=== PATIENT | female | born 1960 | race Caucasian/White ===

== ENCOUNTER 2017-01-11 13:45 | Outpatient (RCR) | payer OTHER | END 2017-01-14 | disposition home or self-care (01) | LOC: WSPT | DX: M25.551 Pain in right hip (principal) | CPT/HCPCS: G0283-GP ==

== ENCOUNTER 2017-01-22 15:00 | Outpatient (RCR) | payer OTHER ==
[2017-02-20] MEDS ORDERED: WELLBUTRIN XL300 M1 PO (11:46)
[2017-02-20] MEDS ORDERED: DESYREL DIVIDO300 MG PO (11:46)
[2017-02-20] MEDS ORDERED: LUNESTA3 MG PO (11:47)
[2017-02-20] MEDS ORDERED: B-121000 MCG PO (11:48)
[2017-02-20] MEDS ORDERED: ATIVAN2 MG PO (11:48)
[2017-02-20] MEDS ORDERED: PERCOCET 325 MG1 TA2 PO (11:49)
[2017-02-20] MEDS ORDERED: D3-5050000 IU PO (11:50)
[2017-02-20] MEDS ORDERED: CYMBALTA 60MG60 MG PO (11:50)
== END 2017-03-15 20:22 | disposition still patient (30) ==
LOC: WSPT 15:00
DX: M72.2 Plantar fascial fibromatosis (principal); M25.551 Pain in right hip; R21 Rash and other nonspecific skin eruption; J18.9 Pneumonia, unspecified organism

== ENCOUNTER → 2017-02-22 | Outpatient (CLI) | payer OTHER ==
[~2017-02-22] VITALS: Ht 154.9 cm; Wt 85.2 kg
[~2017-02-22] MED LIST: ATIVAN2 MG PO; B-121000 MCG PO; CYMBALTA 60MG60 MG PO; D3-5050000 IU PO; DESYREL DIVIDO300 MG PO; LUNESTA3 MG PO; PERCOCET 325 MG1 TA2 PO; WELLBUTRIN XL300 M1 PO
[2017-02-22 12:20] VITALS: BP 143/94; PULSE 90
[2017-02-22 13:10] VITALS: BP 156/101; PULSE 88
[2017-02-22 13:35] VITALS: BP 163/92; PULSE 89
== END ==
LOC: COL.RAD 02-20 09:00
DX: E04.2 Nontoxic multinodular goiter (principal); N25.81 Secondary hyperparathyroidism of renal origin; Z98.890 Other specified postprocedural states

== ENCOUNTER 2017-06-04 05:34 | Day surgery (SDC) | payer OTHER ==
[2017-06-04] VITALS (11 sets, daily range): BP systolic 121–191; BP diastolic 66–94; PULSE 73–86; TEMP 97.6–98.1
[~2017-06-04] VITALS: Ht 154.9 cm; Wt 90.2 kg
[2017-06-04] MEDS ORDERED: NATURAL ZINC50 MG PO (06:02)
[2017-06-04] MEDS ORDERED: MULTI VITAMINS1 TAB PO (06:03)
[2017-06-05 03:48] VITALS: BP 188/95; PULSE 72; TEMP 98.6
[2017-06-05 06:03] VITALS: BP 154/80; PULSE 85; TEMP 98.6
[2017-06-05] MEDS ORDERED: PERCOCET 325 MG1 TA2 PO (08:46)
[2017-06-05 10:48] VITALS: BP 143/74; PULSE 85; TEMP 98.1
== END 2017-06-05 11:20 ==
LOC: SDCO 05:34 → SURG 10:26 → SDCO 06-05 11:20
DX: E04.2 Nontoxic multinodular goiter (principal); M16.9 Osteoarthritis of hip, unspecified; F20.9 Schizophrenia, unspecified; F32.9 Major depressive disorder, single episode, unspecified; N18.3 Chronic kidney disease, stage 3 (moderate)
CPT/HCPCS: OP; J1170; J2175; J2270; J2405; J2704; J3010; J7120

== ENCOUNTER 2017-09-07 20:46 | Emergency (ER) | payer OTHER ==
[~2017-09-07] VITALS: Ht 154.9 cm; Wt 90.9 kg
[~2017-09-07 20:46] MED LIST changes: +MULTI VITAMINS1 TAB PO; +NATURAL ZINC50 MG PO
[2017-09-07 20:48] VITALS: BP 133/80; TEMP 100.8
[2017-09-07] MEDS ORDERED: VITAMIN D 1001000 IU PO (20:59)
[2017-09-07] MEDS ORDERED: ESTRACE0.1 MG/GM VG (20:59)
[2017-09-07] MEDS ORDERED: CYMBALTA 60MG60 MG PO (20:59)
[2017-09-07] MEDS ORDERED: LUNESTA3 MG PO (21:00)
[2017-09-07] MEDS ORDERED: ATIVAN2 MG PO (21:00)
[2017-09-07] MEDS ORDERED: PERCOCET 325 MG1 TA2 PO (21:01)
[2017-09-07] MEDS ORDERED: FLAGYL500 MG PO (21:01)
[2017-09-07] MEDS ORDERED: ANTIVERT 12.512.5 MG PO (21:01)
[2017-09-07] MEDS ORDERED: BACTRIM DS 8001 TAB PO (21:02)
[2017-09-07] MEDS ORDERED: AZULFIDINE ENT500 MG PO (21:02)
[2017-09-07] MEDS ORDERED: DESYREL DIVIDO300 MG PO (21:03)
[2017-09-07] MEDS ORDERED: VITAMIN D 50,1.25 MG PO (21:03)
[2017-09-07] MEDS ORDERED: B-121000 MCG PO (21:03)
[2017-09-07] MEDS ORDERED: PHARMASSURE ZIN50 MG PO (21:04)
[2017-09-07] MEDS ORDERED: NORVASC 5MG5 MG/TAB PO (21:05)
[2017-09-07 21:30] LABS: INFLUENZA A NEGATIVE; INFLUENZA B POSITIVE
[2017-09-07] MEDS ORDERED: TAMIFLU 75MG75 MG PO (21:35)
[2017-09-07 21:53] VITALS: PULSE 94
== END 2017-09-07 21:53 | disposition home or self-care (01) ==
LOC: COL.ER 20:46
PROVIDERS: Nurse Practitioner Primary Care
DX: J10.1 Influenza due to other identified influenza virus with other respiratory manifestations (principal); I12.9 Hypertensive chronic kidney disease with stage 1 through stage 4 chronic kidney disease, or unspecified chronic kidney disease; N18.9 Chronic kidney disease, unspecified; K50.90 Crohn's disease, unspecified, without complications; Z87.442 Personal history of urinary calculi; Z90.89 Acquired absence of other organs

== ENCOUNTER 2018-06-19 11:05 | Day surgery (SDC) | payer OTHER ==
[~2018-06-19] VITALS: Ht 154.9 cm; Wt 92.9 kg
[~2018-06-19 11:05] MED LIST changes: +ANTIVERT 12.512.5 MG PO; +AZULFIDINE ENT500 MG PO; +BACTRIM DS 8001 TAB PO; +ESTRACE0.1 MG/GM VG; +FLAGYL500 MG PO; +NORVASC 5MG5 MG/TAB PO; +PHARMASSURE ZIN50 MG PO; +TAMIFLU 75MG75 MG PO; +VITAMIN D 1001000 IU PO; +VITAMIN D 50,1.25 MG PO
[2018-06-19 11:50] VITALS: BP 134/90; PULSE 77; TEMP 97.9
[2018-06-19 11:57] LABS: CALCIUM 10.5 mg/dL (8.4-10.2); CREATININE, serum 1.13 mg/dL (0.52-1.25); POTASSIUM 4.6 mmol/L (3.4-5.0)
[2018-06-19] MEDS ORDERED: BYSTOLIC5 MG PO (12:00)
[2018-06-19] MEDS ORDERED: MULTI VITAMINS1 TAB PO (12:00)
[2018-06-19 15:35] VITALS: BP 132/74; PULSE 75; TEMP 98
[2018-06-19 15:50] VITALS: BP 141/76; PULSE 75
[2018-06-19] MEDS ORDERED: NORCO 325 MG-51 TAB PO (15:52)
[2018-06-19] MEDS ORDERED: PYRIDIUM 100MG100 MG (15:52)
[2018-06-19] MEDS ORDERED: SENOKOT S 50 MG1 TAB PO (15:53)
[2018-06-19 16:05] VITALS: BP 133/72; PULSE 67
== END 2018-06-19 17:20 | disposition home or self-care (01) ==
LOC: SDCO 11:05
PROVIDERS: Nurse Anesthetist, Certified Registered
DX: N20.1 Calculus of ureter (principal); E21.3 Hyperparathyroidism, unspecified; F32.9 Major depressive disorder, single episode, unspecified; I12.9 Hypertensive chronic kidney disease with stage 1 through stage 4 chronic kidney disease, or unspecified chronic kidney disease; N18.3 Chronic kidney disease, stage 3 (moderate); F43.10 Post-traumatic stress disorder, unspecified; F25.9 Schizoaffective disorder, unspecified; Z90.49 Acquired absence of other specified parts of digestive tract; Z88.6 Allergy status to analgesic agent; Z88.8 Allergy status to other drugs, medicaments and biological substances; Z80.9 Family history of malignant neoplasm, unspecified; Z83.3 Family history of diabetes mellitus; Z82.49 Family history of ischemic heart disease and other diseases of the circulatory system; Z84.1 Family history of disorders of kidney and ureter
CPT/HCPCS: C1769; C2617; J0690; J2175; J2270; J2405; J2704; J3010; J7120

== ENCOUNTER 2018-12-02 09:28 | Inpatient (IN) | payer OTHER, MEDICARE ==
[~2018-12-02] VITALS: Ht 154.9 cm; Wt 95.4 kg
[~2018-12-02 09:28] MED LIST changes: +BYSTOLIC5 MG PO; +NORCO 325 MG-51 TAB PO; +PYRIDIUM 100MG100 MG; +SENOKOT S 50 MG1 TAB PO
[2018-12-18] VITALS (11 sets, daily range): BP systolic 90–151; BP diastolic 53–102; PULSE 85–96; TEMP 98.1–98.9
[2018-12-18 08:04] LABS: CALCIUM 11.2 mg/dL (8.4-10.2); CREATININE, serum 1.23 (0.52-1.25); POTASSIUM 4.8 mmol/L (3.4-5.0)
[2018-12-18] MEDS ORDERED: LUNESTA3 MG PO (08:04)
--- NOTE | 2018-12-18 08:16 | NUR ---
TO RM AT 0720- REVIEWED MEDS CALL LIGHT IN REACH AT BEDSIDE.
--- NOTE | 2018-12-18 14:56 | NUR ---
Patient more awake at this time. Patient was post op at 1345. Very drowsy. Pain is in abdomen. Epidural at 6 for pain management. Abdminal dressing intact. Brad drain to bulb suction. Foster to DD. Low blood pressures. IVf as ordered. Vss. Will monitor.
--- NOTE | 2018-12-18 18:50 | NUR ---
Patient stood at bedside. Freshed up. new gown & pericare provided. Pain elevated with movement, but she did well. Epidural to spine, tegaderm CDI. She is using bolus dose as needed. Scds ble. Brad drain continues to bulb suction, bloody drainage. Foster to DD, urine output has increased. Vss on o2. Midline incisions dressing remains CDI. TOlerating clears, taking it slowly. Her spouse at bedside. Will report off to night nurse
--- NOTE | 2018-12-18 20:24 | NUR ---
Pt. laying in bed watching TV at this time. Pt. is A&OX3, assessment complete. IV to lt. forearm patent, IV fluids infusing per orders. Foster catheter to DD, Clear, yellow urine noted. Epidural intact. Pt. reports pain well managed with epidural. Pt. denies further needs, call light within reach.
[2018-12-19 00:19] VITALS: BP 117/64; PULSE 90; TEMP 98.6
[2018-12-19 04:28] VITALS: BP 124/65; PULSE 86; TEMP 98.3
--- NOTE | 2018-12-19 05:47 | NUR ---
Pt. slept off and on through the night. Pt. did report having difficulty sleeping well. Dressing to abd. CDI. HELIO drain dressing CDI. Epidural remains intact. Foster to DD, clear yellow urine noted. Pt. denies further needs at this time. Call light within reach.
[2018-12-19 07:31] LABS: HEMATOCRIT 37.4 % (37.0-47.0)
--- NOTE | 2018-12-19 07:54 | NUR ---
Patient up to the chair this am. One assist. Patient positioned in chair for comfort. She is taking it slowly with clears-no N/V. Midline drg intact. Brda drain to compression. Foster to DD-adequate output. Epidural for pain management
[2018-12-19 08:07] VITALS: BP 133/67; PULSE 84; TEMP 98.8
--- NOTE | 2018-12-19 10:04 | NUR ---
Patient returned back to bed. Pain elevated with movement, she continues to use Epidural [employer] Super[employer] as needed. Complaints of itching-benadryl per request. Will closely monitor.
[2018-12-19 13:04] VITALS: BP 125/57; PULSE 74; TEMP 98.4
--- NOTE | 2018-12-19 14:19 | NUR ---
SW student met with patient to discuss discharge plan. Patient lives with her in [place]. Patient's PCP is Dr. Mcmahon and she uses the [facility]. Patient does not use any DME and reports independence with ADLs. Patient does not have a DPOA-HC completed and was not interested in completing one at this time. Patient plans to return home upon discharge. SW does not anticipate any needs at this time.
[2018-12-19 15:58] VITALS: BP 127/61; PULSE 80; TEMP 98.7
--- NOTE | 2018-12-19 17:52 | NUR ---
Patient resting intermittently, rouses easily. Patient up to bathroom after bethea removal with x1 assist. Patient voided 250ml of clear yellow urine with no discomfort. Patient does report some abdominal pain with movement/ambulation, declines PRN pain medication at this time. Patient denies further needs. Reported off to FRANCISCO Mora.
--- NOTE | 2018-12-19 18:22 | NUR ---
Patient bethea DC per orders by student nurse. Did verify with Dr. Avila bethea removal with epidrual in place. Patient has been up and voided since removal. Patient Was able to rest well this afternoon since epidural changed by anesthesia with no fentynal. Patient sitting up in chair. nervous about the increased activity with bethea removal. She continues to tolerate clears. IVf per orders. HELIO drain with minimal output. Midline drg intact. WIll report off to night nurse
[2018-12-19 20:00] VITALS: BP 141/77; PULSE 63; TEMP 97.4
--- NOTE | 2018-12-19 20:25 | NUR ---
Patient reports feeling nauseated, medicated with IV Zofran at this time. Patient requesting something for anxiety, she normally takes Ativan 2mg po BID PRN and takes dose at HS, she has not had this since her surgery. Will call doctor for request. Patients abdomen is soft, bowel sounds hypoactive. Midline dressing intact, shadowing at base of incision. Has HELIO drain to bulb suction. Epidural intact to back. IVF infusing to right forearm without redness or swelling.
--- NOTE | 2018-12-19 20:30 | NUR ---
Dr Avila notified of patients anxiety, he advised this nurse to call Anesthesia for dosing.
--- NOTE | 2018-12-19 20:40 | NUR ---
SPOKE WITH CHUN JASMINE REGARDING PATIENTS REQUEST FOR HER LORAZEPAM 2MG PO BID PRN ANXIETY. HE OKAYS THIS DOSE AT THIS TIME.
--- NOTE | 2018-12-19 21:00 | NUR ---
Patient given HS dose of Trazodone and Ativan 2mg po at this time. Denies nausea at this time.
--- NOTE | 2018-12-19 23:00 | NUR ---
Placed SCD's on patient at this time, patient reports feeling better after Ativan.
[2018-12-20] VITALS (7 sets, daily range): BP systolic 119–141; BP diastolic 69–89; PULSE 68–90; TEMP 97.7–98.7
--- NOTE | 2018-12-20 02:31 | NUR ---
Patient complains of itching, medicated with IV Nubain 5mg now. Reports pain 5/10, Morphine 2mg IV given at this time.
--- NOTE | 2018-12-20 03:32 | NUR ---
Patient resting well, rouses easily with name called. Placed on oxygen at 2L/NC for SaO2 90%.
--- NOTE | 2018-12-20 06:00 | NUR ---
Pt has 40cc of drainage from HELIO drain. Is drowsy, no complaints offered at this time. IVF infusing to right forearm without redness or swelling.
--- NOTE | 2018-12-20 11:33 | NUR ---
Patient was indisposed.
--- NOTE | 2018-12-20 18:00 | NUR ---
Incisional pain controlled with epidural and Morphine for breakthrough pain. Diet advanced. Ambulated in room and halls with staff. 30 cc drainage from HELIO drain.
--- NOTE | 2018-12-20 20:40 | NUR ---
Patient in bed, dozing, ready for HS meds. Patient is alert and oriented x4. Has non-narcotic epidural infusing, site to back without leaking, dressing intact. Supervised to bathroom, voids and has smear of stool. Moisture barrier cream applied to sore rectal area.
--- NOTE | 2018-12-21 00:05 | NUR ---
Patient up to bathroom, voids and has smear of stool. Complains of burning of rectal area, moisture barrier cream applied. Back to bed. Previously dosed with Nubain 5mg for itching, currently denies itching.
--- NOTE | 2018-12-21 02:00 | NUR ---
Up to bathroom, voids and back to bed with supervision only.
[2018-12-21 04:29] VITALS: BP 151/71; PULSE 88; TEMP 99.3
--- NOTE | 2018-12-21 06:00 | NUR ---
UP TO BATHROOM, HAS LOOSE STOOL, HX OF CROHNS. VOIDING WELL, TAKING GOOD ORAL FLUIDS AND SOFT FOODS. EPIDURAL CONTINUES.
[2018-12-21 07:46] VITALS: BP 135/67; PULSE 100; TEMP 98.3
[2018-12-21 13:30] VITALS: BP 158/87; PULSE 72; TEMP 98.2
[2018-12-21 16:15] VITALS: BP 144/71; PULSE 72; TEMP 98
--- NOTE | 2018-12-21 17:30 | NUR ---
Ambulating better today. Epidural dc'd. Pain controlled with prn Percocet. Dressing changed after shower. Abdominal incision line CDI with blanca intact. Minimal drainage from HELIO drain.
--- NOTE | 2018-12-21 19:30 | NUR ---
Patient moaning, reports pain to abdomen 8/10. Medicated with Percocet 2 tabs at this time. Gauze dressing to abdomen D/I. HELIO draining serosanguinous, bulb compressed. Epidural is out, patient up ad josé manuel in the room.
[2018-12-21 19:44] VITALS: BP 146/85; PULSE 62; TEMP 98
--- NOTE | 2018-12-22 00:05 | NUR ---
Patient reports pain to abdomen, medicated with Percocet 2 tabs po at this time. Has been up to bathroom on own, loose stools reported.
[2018-12-22 00:14] VITALS: BP 122/68; PULSE 77; TEMP 98.2
[2018-12-22 03:59] VITALS: BP 138/68; PULSE 62; TEMP 98.6
--- NOTE | 2018-12-22 04:10 | NUR ---
Patient moaning with pain, medicated with Percocet 2 tabs at this time for pain 03/28. HELIO with 3cc drainage emptied and placed back to bulb suction.
[2018-12-22] MEDS ORDERED: PERCOCET 325 MG1 TA2 PO (07:01)
[2018-12-22 07:54] VITALS: BP 127/72; PULSE 78; TEMP 98.4
--- NOTE | 2018-12-22 12:09 | NUR ---
Initial visit; Patient thanked Press Clipper for looking in on her and offering prayer, calling her [employer] and making other connections withing her jewish family.
--- NOTE | 2018-12-22 12:20 | NUR ---
PATIENT DISCHARGING HOME VIA WHEELCHAIR TO PERSONAL VEHICLE WITH . GAVE DISCHARGE INSTRUCTIONS, PRESCRIPTION AND FOLLOW UP APT. ANSWERED ALL QUESTIONS/CONCERNS. DC'D IV. PATIENT DISCHARGED.
== END 2018-12-22 12:20 | disposition home or self-care (01) | DRG 354 ==
LOC: INPTSU 12-18 07:05 → SURG 12-18 09:00
PROVIDERS: Nurse Anesthetist, Certified Registered; ADMIT Surgery
PROC: 0WPF0JZ Removal of Synthetic Substitute from Abdominal Wall, Open Approach (ICD-10-PCS; 2018-12-18)
PROC: 0WUF0JZ Supplement Abdominal Wall with Synthetic Substitute, Open Approach (ICD-10-PCS; principal; 2018-12-18 09:00)
DX: K43.2 Incisional hernia without obstruction or gangrene (principal); K50.80 Crohn's disease of both small and large intestine without complications; F11.20 Opioid dependence, uncomplicated; I11.0 Hypertensive heart disease with heart failure; N18.3 Chronic kidney disease, stage 3 (moderate); E66.09 Other obesity due to excess calories; Z68.39 Body mass index [BMI] 39.0-39.9, adult; F41.8 Other specified anxiety disorders; F43.10 Post-traumatic stress disorder, unspecified; E05.90 Thyrotoxicosis, unspecified without thyrotoxic crisis or storm; F25.9 Schizoaffective disorder, unspecified; G89.29 Other chronic pain
CPT/HCPCS: A4314; A9284; C1781; J0690; J1100; J1200; J1650; J2175; J2250; J2270; J2300; J2405; J2550; J2704; J2795; J3010; J7050; J7120

== ENCOUNTER → 2019-01-09 | Outpatient (CLI) | payer OTHER, MEDICARE | LOC: ZCOL.LAB 17:55 | DX: T81.42XA Infection following a procedure, deep incisional surgical site, initial encounter (principal) ==

== ENCOUNTER → 2019-01-16 | Outpatient (CLI) | payer OTHER ==
[~2019-01-16] MED LIST changes: +BYSTOLIC2.5 MG PO
== END ==
LOC: COL.RAD 11:30
DX: N26.1 Atrophy of kidney (terminal) (principal); N20.0 Calculus of kidney; K91.89 Other postprocedural complications and disorders of digestive system; Z90.49 Acquired absence of other specified parts of digestive tract
CPT/HCPCS: Q9967

== ENCOUNTER → 2019-01-19 | Outpatient (CLI) | payer OTHER ==
[~2019-01-19] VITALS: Ht 154.9 cm; Wt 91.4 kg
[2019-01-19] VITALS (11 sets, daily range): BP systolic 105–134; BP diastolic 58–85; PULSE 70–89
--- NOTE | 2019-01-19 13:20 | NUR ---
Pt to ct per wheelchair. Pt placed on ct table in supine position. Monitors applied to pt.
--- NOTE | 2019-01-19 13:30 | NUR ---
Dr Sunshine into room and talks with pt.
--- NOTE | 2019-01-19 15:01 | NUR ---
Specimen obtained and placed in collection cup. Specimen labeled.
== END ==
LOC: COL.RAD 12:00
DX: L02.211 Cutaneous abscess of abdominal wall (principal)
CPT/HCPCS: J2175; J2250